=== PATIENT | female | born 1955 | race Caucasian/White ===

== ENCOUNTER 2017-08-05 14:01 | Emergency (ER) | payer MEDICARE, OTHER ==
[~2017-08-05] VITALS: Ht 167.6 cm; Wt 59.0 kg
[~2017-08-05 14:01] MED LIST: ALBU.083IS IH; ALBU90OI INH; ALPR1; AZIT250 PO; AZIT500 PO; BENZ100A PO; BUPR150ER; BUPR150ER PO; BUSPAR; CLON.5 PO; DOXY100 PO; DULO60 PO; ESCI20 PO; FLUSAL2505 INH; FLUSAL5005 IH; Flovent 110 MCG12 GM; HYDPAM25 PO; Hair, Skin & N1 EACH PO; INCRUSE ELLI62.5 MCG; LAMO50 PO; LATUDA60 MG; LISI5 PO; LITH300C PO; Lamictal100 MG PO; Lithium Carbon450 MG PO; Lithium Carbonate PO; METO50 PO; OXYACE5T PO; PRED10 PO; PRED20 PO; PROP10 PO; QUET100 PO; QUET300 PO; RXOXYACE PO; SERT50 PO; Seroquel200 MG PO; TEMA30 PO; TEMA7.5 PO; TIOT18 INH; TRAM50 PO; TRAZ50 PO; Ventolin5 MG/1 ML INH
[2017-08-05] MEDS ORDERED: Advair Hfa 230-12 GM (14:11)
[2017-08-05] MEDS ORDERED: ALBU90OI INH (14:12)
[2017-08-05] MEDS ORDERED: Norco 5-325 Ta1 EACH PO (14:41)
== END 2017-08-05 15:05 | disposition home or self-care (01) ==
LOC: ER 14:01
DX: S42.302A Unspecified fracture of shaft of humerus, left arm, initial encounter for closed fracture (principal); F31.9 Bipolar disorder, unspecified; J44.9 Chronic obstructive pulmonary disease, unspecified; Z87.891 Personal history of nicotine dependence; W18.09XA Striking against other object with subsequent fall, initial encounter
CPT/HCPCS: 29105; 36415; 73030; 96374; 99284; J3010

== ENCOUNTER 2017-08-12 11:02 | Day surgery (SDC) | payer MEDICARE, OTHER ==
[~2017-08-12] VITALS: Ht 167.6 cm; Wt 62.1 kg
[~2017-08-12 11:02] MED LIST changes: +Advair Hfa 230-12 GM; +Advair Hfa 230-12 GM INH; -BUPR150ER; -INCRUSE ELLI62.5 MCG; +INCRUSE ELLI62.5 MCG INH; -LATUDA60 MG; +LATUDA60 MG PO; +Norco 5-325 Ta1 EACH PO
[2017-08-13 04:35] LABS: BASOPHILS ABSOLUTE AUTO 0.01 K/mm3 (0.00-0.23); BASOPHILS PERCENT AUTO 0 % (0-2); EOSINOPHILS PERCENT AUTO 0 % (0-6); Hematocrit 29.8 % (33.0-51.0); Hemoglobin 9.4 g/dL (11.5-16.0); IMMATURE GRAN ABSOLUTE AUTO 0.03 K/mm3 (0.00-0.10); IMMATURE GRAN PERCENT AUTO 0 % (0-1); LYMPHOCYTES ABSOLUTE AUTO 0.97 K/mm3 (0.84-5.20); LYMPHOCYTES PERCENT AUTO 11 % (21-46); MONOCYTES ABSOLUTE AUTO 0.62 K/mm3 (0.16-1.47); MONOCYTES PERCENT AUTO 7 % (4-13); Mean Corpuscular HGB 28.7 pg (26.0-34.0); Mean Corpuscular HGB Conc 31.5 g/dL (31.5-36.5); Mean Corpuscular Volume 91 fL (80-100); Mean Platelet Volume 9.7 fL (9.1-12.4); NEUTROPHILS ABSOLUTE AUTO 7.36 K/mm3 (1.96-9.15); NEUTROPHILS PERCENT AUTO 82 % (41-73); Platelet Count 263 K/mm3 (150-400); RDW Standard Deviation 46.5 fL (35.1-46.3); Red Blood Cell Count 3.27 M/mm3 (3.80-5.20); White Blood Cell Count 8.99 K/mm3 (4.00-11.30)
[2017-08-13 05:12] LABS: Anion Gap 7 mmol/L (6-16); Blood Urea Nitrogen 18 mg/dL (8-24); Bun/Creatinine Ratio 23.4 (12.0-20.0); CO2, Blood 23 mmol/L (21-32); Chloride, Blood 111 mmol/L (98-108); Creatinine, Blood 0.77 mg/dL (0.40-1.00); Glomerular Filtration Rate >60 (60-); Glucose, Blood 89 mg/dL (70-99); Potassium, Blood 4.4 mmol/L (3.5-5.5); Sodium, Blood 141 mmol/L (136-145)
[2017-08-13] MEDS ORDERED: OXYC5 PO (15:16)
== END 2017-08-13 15:35 | disposition home or self-care (01) ==
LOC: ORSCMMR 11:02 → SURS 16:42 → ORSCMMR 08-13 15:35
PROVIDERS: Orthopaedic Surgery
PROC: 0PSG04Z Reposition Left Humeral Shaft with Internal Fixation Device, Open Approach (ICD-10-PCS; principal; 2017-08-12 12:30)
DX: S42.201A Unspecified fracture of upper end of right humerus, initial encounter for closed fracture (principal); J44.9 Chronic obstructive pulmonary disease, unspecified; Z79.899 Other long term (current) drug therapy; F17.210 Nicotine dependence, cigarettes, uncomplicated
CPT/HCPCS: 36415; 80048; 85025; 94640; 94760; C1713; J0171; J0690; J0735; J1100; J1885; J2250; J2405; J2710; J2795; J3010; J7120

== ENCOUNTER 2020-01-18 10:10 | Emergency (ER) | payer MEDICARE, OTHER ==
[~2020-01-18] VITALS: Ht 167.6 cm; Wt 68.0 kg
[~2020-01-18 10:10] MED LIST changes: +ALBU90OI6 INH; +Budeprion Sr150 MG PO; +LAMO100 PO; +OXYC5 PO; +Zoloft50 MG PO
== END 2020-01-18 11:58 | disposition home or self-care (01) ==
LOC: ER 10:10
DX: S01.01XA Laceration without foreign body of scalp, initial encounter (principal); F31.9 Bipolar disorder, unspecified; J44.9 Chronic obstructive pulmonary disease, unspecified; F17.210 Nicotine dependence, cigarettes, uncomplicated; Z91.041 Radiographic dye allergy status; Z79.899 Other long term (current) drug therapy; Z86.73 Personal history of transient ischemic attack (TIA), and cerebral infarction without residual deficits; W01.190A Fall on same level from slipping, tripping and stumbling with subsequent striking against furniture, initial encounter; Y93.E9 Activity, other interior property and clothing maintenance
CPT/HCPCS: 12002; 70450; 72125; 99283-25

== ENCOUNTER 2020-01-24 12:45 | Emergency (ER) | payer MEDICARE, OTHER ==
[~2020-01-24] VITALS: Ht 167.6 cm; Wt 69.0 kg
== END 2020-01-24 13:30 | disposition home or self-care (01) ==
LOC: ER 12:45
DX: S01.01XD Laceration without foreign body of scalp, subsequent encounter (principal); F31.9 Bipolar disorder, unspecified; J44.9 Chronic obstructive pulmonary disease, unspecified; F17.210 Nicotine dependence, cigarettes, uncomplicated; Z91.041 Radiographic dye allergy status; Z79.899 Other long term (current) drug therapy; X58.XXXD Exposure to other specified factors, subsequent encounter

== ENCOUNTER → 2020-02-14 | Outpatient (CLI) | payer MEDICARE, OTHER ==
[2020-02-14 12:19] LABS: Source, Urine Clean Catch
[2020-02-14 16:28] LABS: Bilirubin, Urine Neg (Neg); Blood, Urine Neg (Neg); Glucose Qualitative, Urine Neg (Neg); Ketones, Urine Neg (Neg); Leukocyte Esterase, Urine 1+ (Neg); Nitrite, Urine Neg (Neg); Protein, Urine Neg (Neg); Specific Gravity, Urine 1.015 (1.003-1.022); Urobilinogen, Urine NORM (Normal)
[2020-02-14 16:47] LABS: Appearance, Urine Clear (Clear); Color, Urine Yellow (P-Yellow)
[2020-02-14 16:48] LABS: Bacteria Few /hpf; Red Blood Cells, Urine 0-2 /hpf (0-2); Squamous Epithelial Cells Few /hpf (Few)
== END | disposition home or self-care (01) ==
LOC: LAB 11:15 → LAB SHORT 11:15
PROVIDERS: Nurse Practitioner Family
DX: N30.00 Acute cystitis without hematuria (principal)
CPT/HCPCS: 81001; 87086

== ENCOUNTER 2020-06-17 20:42 | Inpatient (IN) | payer MEDICARE, OTHER ==
[~2020-06-17] VITALS: Ht 170.2 cm; Wt 68.4 kg
[~2020-06-17 20:42] MED LIST changes: -ALBU90OI6 INH; -Budeprion Sr150 MG PO; -Zoloft50 MG PO
[2020-06-17 21:27] LABS: BASOPHILS ABSOLUTE AUTO 0.04 K/mm3 (0.00-0.23); BASOPHILS PERCENT AUTO 1 % (0-2); EOSINOPHILS ABSOLUTE AUTO 0.21 K/mm3 (0.00-0.68); EOSINOPHILS PERCENT AUTO 3 % (0-6); Hematocrit 34.1 % (33.0-51.0); Hemoglobin 11.2 g/dL (11.5-16.0); IMMATURE GRAN ABSOLUTE AUTO 0.02 K/mm3 (0.00-0.10); IMMATURE GRAN PERCENT AUTO 0 % (0-1); LYMPHOCYTES ABSOLUTE AUTO 1.93 K/mm3 (0.84-5.20); LYMPHOCYTES PERCENT AUTO 23 % (21-46); MONOCYTES ABSOLUTE AUTO 0.62 K/mm3 (0.16-1.47); MONOCYTES PERCENT AUTO 8 % (4-13); Mean Corpuscular HGB 27.9 pg (26.0-34.0); Mean Corpuscular HGB Conc 32.8 g/dL (31.5-36.5); Mean Corpuscular Volume 85 fL (80-100); Mean Platelet Volume 8.9 fL (9.1-12.4); NEUTROPHILS ABSOLUTE AUTO 5.42 K/mm3 (1.96-9.15); NEUTROPHILS PERCENT AUTO 66 % (41-73); Platelet Count 429 K/mm3 (150-400); RDW Coefficient Variation 13.3 % (11.7-14.2); RDW Standard Deviation 41.3 fL (35.1-46.3); Red Blood Cell Count 4.02 M/mm3 (3.80-5.20); White Blood Cell Count 8.24 K/mm3 (4.00-11.30)
[2020-06-17 21:47] LABS: Troponin I <0.015 ng/mL (0.000-0.040)
[2020-06-17 21:48] LABS: Alanine Aminotransfer (ALT/SGP 30 U/L (12-78); Albumin, Blood 3.1 g/dL (3.4-5.0); Albumin/Globulin Ratio 0.8 (0.8-1.8); Alk Phos 84 U/L (50-136); Anion Gap 9 mmol/L (6-16); Aspartate Aminotrans (AST/SGOT 27 U/L (12-37); Bilirubin, Total 0.3 mg/dL (0.1-1.0); Blood Urea Nitrogen 7 mg/dL (8-24); CO2, Blood 22 mmol/L (21-32); Calcium, Blood 9.4 mg/dL (8.5-10.1); Chloride, Blood 110 mmol/L (98-108); Creatinine, Blood 0.77 mg/dL (0.40-1.00); Globulin, Blood 4.1 g/dL (2.2-4.0); Glomerular Filtration Rate >60 (60-); Glucose, Blood 101 mg/dL (70-99); Potassium, Blood 3.4 mmol/L (3.5-5.5); Sodium, Blood 141 mmol/L (136-145); Total Protein, Blood 7.2 g/dL (6.4-8.2)
[2020-06-17] MEDS ORDERED: FLUTICASONE-SA1 EAC9 INH (22:05)
[2020-06-17] MEDS ORDERED: INCRUSE ELPT 62.5MCG INH (22:06)
[2020-06-17] MEDS ORDERED: Budeprion Sr150 MG PO (22:07)
[2020-06-17] MEDS ORDERED: Lithium Carbon450 MG PO (22:07)
[2020-06-17] MEDS ORDERED: QUET100 PO (22:08)
[2020-06-17] MEDS ORDERED: Zoloft50 MG PO (22:08)
[2020-06-17] MEDS ORDERED: LATUDA60 M1 PO (22:09)
[2020-06-17] MEDS ORDERED: ALBU90OI6 INH (22:10)
[2020-06-17] MEDS ORDERED: Aspir 8181 MG PO (22:11)
[2020-06-18 02:22] LABS: Influenza A, PCR NEGATIVE (NEGATIVE); Influenza B, PCR NEGATIVE (NEGATIVE); Resp Syncytial Virus, PCR NEGATIVE (NEGATIVE); SARS-Cov-2 (COVID-19) PCR, MMC NEGATIVE (NEGATIVE)
[2020-06-18] MEDS ORDERED: Inderal40 MG PO (17:58)
[2020-06-19 05:07] LABS: Base Excess Venous -2.9 mmol/L; Bicarbonate Venous 22.1 mmol/L (24.0-30.0); PCO2 Venous 38.2 mmHg (38-42); PO2 Venous 62.7 mmHg (38-42); pH Blood Venous 7.38 (7.34-7.37)
[2020-06-19 05:12] LABS: BASOPHILS ABSOLUTE AUTO 0.03 K/mm3 (0.00-0.23); BASOPHILS PERCENT AUTO 0 % (0-2); EOSINOPHILS ABSOLUTE AUTO 0.03 K/mm3 (0.00-0.68); EOSINOPHILS PERCENT AUTO 0 % (0-6); Hematocrit 33.5 % (33.0-51.0); Hemoglobin 10.6 g/dL (11.5-16.0); IMMATURE GRAN ABSOLUTE AUTO 0.04 K/mm3 (0.00-0.10); IMMATURE GRAN PERCENT AUTO 0 % (0-1); LYMPHOCYTES ABSOLUTE AUTO 1.42 K/mm3 (0.84-5.20); LYMPHOCYTES PERCENT AUTO 15 % (21-46); MONOCYTES ABSOLUTE AUTO 0.54 K/mm3 (0.16-1.47); MONOCYTES PERCENT AUTO 6 % (4-13); Mean Corpuscular HGB 27.5 pg (26.0-34.0); Mean Corpuscular HGB Conc 31.6 g/dL (31.5-36.5); Mean Corpuscular Volume 87 fL (80-100); NEUTROPHILS ABSOLUTE AUTO 7.39 K/mm3 (1.96-9.15); NEUTROPHILS PERCENT AUTO 78 % (41-73); Platelet Count 342 K/mm3 (150-400); RDW Standard Deviation 43.6 fL (35.1-46.3); Red Blood Cell Count 3.86 M/mm3 (3.80-5.20); White Blood Cell Count 9.45 K/mm3 (4.00-11.30)
[2020-06-19 05:30] LABS: Anion Gap 5 mmol/L (6-16); Blood Urea Nitrogen 13 mg/dL (8-24); Bun/Creatinine Ratio 14.8 (12.0-20.0); CO2, Blood 22 mmol/L (21-32); Calcium, Blood 9.1 mg/dL (8.5-10.1); Chloride, Blood 115 mmol/L (98-108); Creatinine, Blood 0.88 mg/dL (0.40-1.00); Glomerular Filtration Rate >60 (60-); Glucose, Blood 99 mg/dL (70-99); Potassium, Blood 4.5 mmol/L (3.5-5.5); Sodium, Blood 142 mmol/L (136-145)
[2020-06-19] MEDS ORDERED: GUAI200 PO (12:16)
[2020-06-19] MEDS ORDERED: Prednisone20 MG PO (12:17)
== END 2020-06-19 14:20 | disposition home or self-care (01) | DRG 191 ==
LOC: ER 20:42 → ERHOLD 20:43 → MEDS 06-18 12:36
PROVIDERS: Emergency Medicine; Internal Medicine; Physician Assistant; ADMIT Internal Medicine
DX: J44.0 Chronic obstructive pulmonary disease with (acute) lower respiratory infection (principal); E87.2 Acidosis; E44.0 Moderate protein-calorie malnutrition; J20.9 Acute bronchitis, unspecified; F31.9 Bipolar disorder, unspecified; K59.09 Other constipation; Z20.822 Contact with and (suspected) exposure to COVID-19; Z87.891 Personal history of nicotine dependence; E86.0 Dehydration; Z68.23 Body mass index [BMI] 23.0-23.9, adult
CPT/HCPCS: 0241U; 36415; 71045; 80048; 80053; 82803; 83605; 84145; 84484; 85025; 87040; 93005; 93010; 94640; 94667; 94762; 96365; 96366; 96372; 96372-59; 96375; 96376; 99285-25; A9270; G0378; J1650; J2930; J3480; J7512

== ENCOUNTER 2021-10-23 22:17 | Emergency (ER) | payer MEDICARE, OTHER ==
[~2021-10-23] VITALS: Ht 167.6 cm; Wt 68.0 kg
[~2021-10-23 22:17] MED LIST changes: +ALBU90OI6 INH; +Aspir 8181 MG PO; +Budeprion Sr150 MG PO; +FLUTICASONE-SA1 EAC9 INH; +GUAI200 PO; +INCRUSE ELPT 62.5MCG INH; +Inderal40 MG PO; +LATUDA60 M1 PO; +Prednisone20 MG PO; +Zoloft50 MG PO
[2021-10-23 22:53] LABS: BASOPHILS ABSOLUTE AUTO 0.11 K/mm3 (0.00-0.23); BASOPHILS PERCENT AUTO 1 % (0-2); EOSINOPHILS ABSOLUTE AUTO 0.41 K/mm3 (0.00-0.68); EOSINOPHILS PERCENT AUTO 3 % (0-6); Hematocrit 43.4 % (33.0-51.0); Hemoglobin 14.2 g/dL (11.5-16.0); IMMATURE GRAN ABSOLUTE AUTO 0.04 K/mm3 (0.00-0.10); IMMATURE GRAN PERCENT AUTO 0 % (0-1); LYMPHOCYTES PERCENT AUTO 25 % (21-46); MONOCYTES ABSOLUTE AUTO 0.73 K/mm3 (0.16-1.47); MONOCYTES PERCENT AUTO 6 % (4-13); Mean Corpuscular HGB 27.5 pg (26.0-34.0); Mean Corpuscular HGB Conc 32.7 g/dL (31.5-36.5); Mean Corpuscular Volume 84 fL (80-100); Mean Platelet Volume 9.2 fL (9.1-12.4); NEUTROPHILS ABSOLUTE AUTO 7.68 K/mm3 (1.96-9.15); NEUTROPHILS PERCENT AUTO 64 % (41-73); Platelet Count 367 K/mm3 (150-400); RDW Coefficient Variation 13.6 % (11.7-14.2); RDW Standard Deviation 42.1 fL (35.1-46.3); Red Blood Cell Count 5.17 M/mm3 (3.80-5.20); White Blood Cell Count 11.97 K/mm3 (4.00-11.30)
[2021-10-23 23:11] LABS: Albumin, Blood 4.5 g/dL (3.4-5.0); Bilirubin, Total 0.3 mg/dL (0.1-1.0); Bun/Creatinine Ratio 30.1 (12.0-20.0); Calcium, Blood 10.8 mg/dL (8.5-10.1); Creatinine, Blood 0.8 mg/dL (0.40-1.00); Globulin, Blood 4.5 g/dL (2.2-4.0); Potassium, Blood 4.4 mmol/L (3.5-5.5)
== END 2021-10-24 03:17 | disposition home or self-care (01) ==
LOC: ER 22:17
PROVIDERS: Physician Assistant
DX: S01.01XA Laceration without foreign body of scalp, initial encounter (principal); J44.9 Chronic obstructive pulmonary disease, unspecified; Z87.891 Personal history of nicotine dependence; Z79.899 Other long term (current) drug therapy; Z91.041 Radiographic dye allergy status; Z79.82 Long term (current) use of aspirin; Z79.52 Long term (current) use of systemic steroids; W22.8XXA Striking against or struck by other objects, initial encounter
CPT/HCPCS: 36415; 70450; 72125; 80053; 85025; A9270; G0480; J2405; J7120

== ENCOUNTER 2023-12-16 11:31 | Emergency (ER) | payer MEDICARE ==
[~2023-12-16] VITALS: Ht 167.6 cm; Wt 68.0 kg
[2023-12-16 12:03] LABS: BASOPHILS PERCENT AUTO 2 % (0-2); EOSINOPHILS ABSOLUTE AUTO 0.55 K/mm3 (0.00-0.68); EOSINOPHILS PERCENT AUTO 10 % (0-6); Hematocrit 39.8 % (33.0-51.0); Hemoglobin 12.6 g/dL (11.5-16.0); IMMATURE GRAN ABSOLUTE AUTO 0.01 K/mm3 (0.00-0.10); IMMATURE GRAN PERCENT AUTO 0 % (0-1); LYMPHOCYTES ABSOLUTE AUTO 1.33 K/mm3 (0.84-5.20); LYMPHOCYTES PERCENT AUTO 24 % (21-46); MONOCYTES ABSOLUTE AUTO 0.42 K/mm3 (0.16-1.47); MONOCYTES PERCENT AUTO 7 % (4-13); Mean Corpuscular HGB 26.4 pg (26.0-34.0); Mean Corpuscular HGB Conc 31.7 g/dL (31.5-36.5); Mean Corpuscular Volume 83 fL (80-100); Mean Platelet Volume 9.4 fL (9.1-12.4); NEUTROPHILS ABSOLUTE AUTO 3.25 K/mm3 (1.96-9.15); NEUTROPHILS PERCENT AUTO 57 % (41-73); Platelet Count 216 K/mm3 (150-400); RDW Coefficient Variation 14.4 % (11.7-14.2); RDW Standard Deviation 44.3 fL (35.1-46.3); Red Blood Cell Count 4.77 M/mm3 (3.80-5.20); White Blood Cell Count 5.66 K/mm3 (4.00-11.30)
[2023-12-16 12:26] LABS: Influenza A, PCR NEGATIVE (NEGATIVE); Influenza B, PCR NEGATIVE (NEGATIVE); Resp Syncytial Virus, PCR NEGATIVE (NEGATIVE); SARS-Cov-2 (COVID-19) PCR, MMC NEGATIVE (NEGATIVE)
[2023-12-16 12:46] LABS: Albumin, Blood 3.8 g/dL (3.4-5.0); Albumin/Globulin Ratio 0.9 (0.8-1.8); Bilirubin, Total 0.4 mg/dL (0.1-1.0); Bun/Creatinine Ratio 21.2 (12.0-20.0); Calcium, Blood 9.8 mg/dL (8.5-10.1); Creatinine, Blood 0.8 mg/dL (0.40-1.00); Globulin, Blood 4.1 g/dL (2.2-4.0); Potassium, Blood 4.5 mmol/L (3.5-5.5); Total Protein, Blood 7.9 g/dL (6.4-8.2)
[2023-12-16] MEDS ORDERED: Ipratropium/Albuterol SulF 2.5-0.5MG/3 ML Amp INH ONE (15:00)
[2023-12-16] MEDS ORDERED: MethylPREDNISolone Sod Succ 125 MG Vial IV ONE (15:05)
[2023-12-16 15:32] VITALS: BP 138/77
[2023-12-16] MEDS ORDERED: Prednisone20 MG PO (15:50)
== END 2023-12-16 16:01 | disposition home or self-care (01) ==
LOC: ER 11:31
PROVIDERS: Physician Assistant
DX: J44.1 Chronic obstructive pulmonary disease with (acute) exacerbation (principal); Z87.891 Personal history of nicotine dependence; Z86.73 Personal history of transient ischemic attack (TIA), and cerebral infarction without residual deficits; Z79.51 Long term (current) use of inhaled steroids; Z79.52 Long term (current) use of systemic steroids; Z79.899 Other long term (current) drug therapy; Z91.041 Radiographic dye allergy status
CPT/HCPCS: 0241U; 71046; 80053; 83880; 85025; 93005; 93010; 94640; 94664; 96374; 99285-25; J2919

== ENCOUNTER 2024-02-23 09:14 | Day surgery (SDC) | payer MEDICARE ==
[~2024-02-23] VITALS: Ht 167.6 cm; Wt 68.6 kg
[2024-02-23] VITALS (23 sets, daily range): BP systolic 120–170; BP diastolic 62–114
[~2024-02-23 09:14] MED LIST changes: +FAMO20 PO; +NS 500 ML IV SCH; +SERT100 PO; +WIXELA 250-501 EAC1 INH
[2024-02-23] MEDS ORDERED: TRELEGY ELLIPT1 EACH INH (09:31)
[2024-02-23] MEDS ORDERED: propofoL 40 ML IV ONE (09:53)
--- NOTE | 2024-02-23 09:56 | NUR ---
History, Chart, Medications and Allergies reviewed before start of procedure. Lungs clear T/O to Auscultation. Patient confirms NPO status and agrees with scheduled surgery. Patient states colon prep results clear. Pre-Op teaching done. Pt verbalizes understanding.
--- NOTE | 2024-02-23 10:00 | NUR ---
02/23/24 Reina Nieves CONFIRMED AND REVIEWED H&P, MEDCICATIONS, ALLERGIES, MEDICAL HISTORY, RESPIRATORY HISTORY, VITAL SIGNS, 3-LEAD EKG, CONSENTS, AND PHYSICIAN ORDERS. PATIENT CONFIRMS NPO STATUS AND AGREES WITH SCHEDULED PROCEDURE. MONITOR INTACT WITH CONTINUOUS PULSE OXIMETRY, CAPNOGRAPHY, 3-LEAD EKG, INTERMITTENT BP. SUPPLEMENTAL O2 TO BE TITRATED THROUGHOUT PROCEDURE TO MAINTAIN O2 SATURATION ABOVE 90%. PATIENT DETERMINED TO BE ASA APPROPRIATE FOR PROPOFOL SEDATION PRIOR TO START OF PROCEDURE BY DR. PIPER
--- NOTE | 2024-02-23 11:08 | NUR ---
Discharge instructions reviewed with patient. Patient verbalizes understanding. Copy given to patient to take home. Patient States Post-Procedure ride home has been arranged. Discharged via wheelchair to private car for ride home. Pt belongings returned to pt.
== END 2024-02-23 11:13 | disposition home or self-care (01) ==
LOC: ORSCMMR 09:14 → ORD 10:30 → ORSCMMR 11:13
PROVIDERS: Internal Medicine Gastroenterology
PROC: 0DBL8ZX Excision of Transverse Colon, Via Natural or Artificial Opening Endoscopic, Diagnostic (ICD-10-PCS; principal; 2024-02-23 10:30)
PROC: 0DBK8ZX Excision of Ascending Colon, Via Natural or Artificial Opening Endoscopic, Diagnostic (ICD-10-PCS; principal; 2024-02-23 10:30)
DX: Z12.11 Encounter for screening for malignant neoplasm of colon (principal); Z86.0101 Personal history of adenomatous and serrated colon polyps; D12.3 Benign neoplasm of transverse colon; K63.5 Polyp of colon; D12.2 Benign neoplasm of ascending colon; K57.30 Diverticulosis of large intestine without perforation or abscess without bleeding; M62.89 Other specified disorders of muscle; K59.09 Other constipation; J44.9 Chronic obstructive pulmonary disease, unspecified; F31.9 Bipolar disorder, unspecified; Z87.891 Personal history of nicotine dependence; Z79.82 Long term (current) use of aspirin; Z79.899 Other long term (current) drug therapy
CPT/HCPCS: 88305; J2704; J7040

== ENCOUNTER 2024-05-11 03:12 | Inpatient (IN) | payer MEDICARE ==
[~2024-05-11] VITALS: Ht 167.6 cm; Wt 68.9 kg
[~2024-05-11 03:12] MED LIST changes: -Budeprion Sr150 MG PO; +LITH300ER PO; -NS 500 ML IV SCH; +TRELEGY ELLIPT1 EACH INH
[2024-05-11 03:18] LABS: Base Excess Venous -3.4 mmol/L; Bicarbonate Venous 20.7 mmol/L (24.0-30.0); PCO2 Venous 48.3 mmHg (38-42); pH Blood Venous 7.29 (7.34-7.37)
[2024-05-11] MEDS ORDERED: Albuterol 2.5 MG/3 ML VIAL INH SCH (03:25)
[2024-05-11] MEDS ORDERED: Ipratropium Bromide INH 0.02% 0.5 mg/2.5ML Vial INH SCH ×2 (03:25→09:20)
[2024-05-11] MEDS ORDERED: MethylPREDNISolone Sod Succ 125 MG Vial IV ONE (04:15)
[2024-05-11 04:17] LABS: Magnesium, Blood 2.2 mg/dL (1.6-2.4); Phosphorus, Blood 3.2 mg/dL (2.5-4.9)
[2024-05-11] MEDS ORDERED: CefTRIAXone Sodium 1,000 MG in NS 50 ML IV ONE (04:20)
[2024-05-11] MEDS ORDERED: Azithromycin 500 MG in NS 250 ML IV ONE (04:25)
[2024-05-11] MEDS ORDERED: Ondansetron HCl 2 MG / ML 2ML Vial IV PRN (04:30)
[2024-05-11 05:09] LABS: CORONAVIRUS COVID-19 AG Negative (NEGATIVE); INFLUENZA A AG Negative (NEGATIVE); INFLUENZA B AG Negative (NEGATIVE)
[2024-05-11] MEDS ORDERED: FLU VACC TS2024-25(6MOS UP)/PF 45 MCG/0.5 ML SYRINGE IM ONE (05:35)
[2024-05-11] MEDS ORDERED: Ipratropium/Albuterol SulF 2.5-0.5MG/3 ML Amp INH PRN (05:35)
[2024-05-11 06:00] VITALS: BP 126/83
[2024-05-11] MEDS ORDERED: MethylPREDNISolone Sod Succ 125 MG Vial IV SCH ×2 (06:00→12:00)
--- NOTE | 2024-05-11 06:15 | NUR ---
NURSE NOTE PATIENT ARRIVED TO THE UNIT ON A GURNEY, SHE SAT AT THE SIDE DANGLED AND MOVED OVER TO PCU BED. PATIENT ARRIVED ON 4 LITERS NC SATTING AT 100%. PT WAS ABLE TO ANSWER QUESTIONS FOR HEALTH HISTORY AND ASSESMENT. PT SAID SHE HAD A RECENT FALL DOWN HER FRONT STEPS AT HER TRAILER, HER LEFT WRIST IS FRACTURED ACCORDING TO THE PT AND SHE IS TO HAVE SURGERY ON IT AT THE END OF THIS MONTH. PT WAS INSTRUCTED TO NOT USE THAT LEFT WRIST. DURING ASSESSMENT PT WAS NOTED TO HAVE A PERSISTENT COUGH, PT WAS TRIPPODING AND RR OF 22 WAS NOTED. IV ABX INFUSING PER EMAR. CALL LIGHT IN REACH, WILL REPORT TO ONCOMING RN.
[2024-05-11 07:02] LABS: BASOPHILS ABSOLUTE AUTO 0.05 K/mm3 (0.00-0.23); BASOPHILS PERCENT AUTO 1 % (0-2); EOSINOPHILS ABSOLUTE AUTO 0.13 K/mm3 (0.00-0.68); EOSINOPHILS PERCENT AUTO 2 % (0-6); Hematocrit 39.3 % (33.0-51.0); Hemoglobin 12.6 g/dL (11.5-16.0); IMMATURE GRAN ABSOLUTE AUTO 0.01 K/mm3 (0.00-0.10); IMMATURE GRAN PERCENT AUTO 0 % (0-1); LYMPHOCYTES ABSOLUTE AUTO 1.18 K/mm3 (0.84-5.20); LYMPHOCYTES PERCENT AUTO 20 % (21-46); MONOCYTES ABSOLUTE AUTO 0.76 K/mm3 (0.16-1.47); MONOCYTES PERCENT AUTO 13 % (4-13); Mean Corpuscular HGB 26.3 pg (26.0-34.0); Mean Corpuscular HGB Conc 32.1 g/dL (31.5-36.5); Mean Corpuscular Volume 82 fL (80-100); Mean Platelet Volume 10.3 fL (9.1-12.4); NEUTROPHILS ABSOLUTE AUTO 3.75 K/mm3 (1.96-9.15); NEUTROPHILS PERCENT AUTO 64 % (41-73); Platelet Count 246 K/mm3 (150-400); RDW Coefficient Variation 14.7 % (11.7-14.2); Red Blood Cell Count 4.79 M/mm3 (3.80-5.20); White Blood Cell Count 5.88 K/mm3 (4.00-11.30)
[2024-05-11 07:09] LABS: Albumin, Blood 3.8 g/dL (3.4-5.0); Albumin/Globulin Ratio 0.9 (0.8-1.8); Bilirubin, Total 0.5 mg/dL (0.1-1.0); Bun/Creatinine Ratio 21.8 (12.0-20.0); Calcium, Blood 9.8 mg/dL (8.5-10.1); Creatinine, Blood 0.74 mg/dL (0.40-1.00); Globulin, Blood 4.4 g/dL (2.2-4.0); Potassium, Blood 4.4 mmol/L (3.5-5.5); Total Protein, Blood 8.2 g/dL (6.4-8.2)
[2024-05-11 07:14] VITALS: BP 120/64
[2024-05-11] MEDS ORDERED: Enoxaparin 40 MG/0.4 ML SYR SC SCH (09:00)
[2024-05-11] MEDS ORDERED: Mometasone/Formoterol MDI 100/5 mcg 13 GM INH SCH (09:20)
[2024-05-11] MEDS ORDERED: Sertraline HCl 100 MG Tab PO SCH (10:00)
[2024-05-11] MEDS ORDERED: buPROPion HCL 150 MG TAB.SR.12H PO SCH (10:00)
[2024-05-11] MEDS ORDERED: Lithium Carbonate 450 MG TabCR PO SCH (10:00)
[2024-05-11 17:09] VITALS: BP 105/82
--- NOTE | 2024-05-11 17:43 | NUR ---
SHIFT SUMMARY: PT ALERT AND ORIENTED X4, ABLE TO FOLLOW COMMANDS AND MAKE NEEDS KNOWN. COOPERATIVE WITH CARE. BP AND HR STABLE. DENIES CP/PRESSURE. AFEBRILE. SPO2 >94% ON ROOM AIR. LUNG SOUNDS COARSE. PT WITH HARSH, NON PRODUCTIVE COUGH. PULSES STRONG AND EQUAL THROUGHOUT. ABD SOFT, NON TENDER, BOWEL SOUNDS +. NO BM THIS SHIFT. PT WITH PARK BANDAGE WRAP ON L. WRIST. PT STATES FRACTURE PRIOR TO ADMISSION, EXPECTING SURGERY LATER THIS MONTH. PT IND TO AND FROM BATHROOM. BED IN LOW, CALL LIGHT IN REACH, WILL REPORT TO ONCOMING RN.
[2024-05-11] MEDS ORDERED: Misc. Tablet PO SCH (18:00)
[2024-05-11] MEDS ORDERED: OxyCODONE HCL 5 MG TAB PO PRN (18:15)
[2024-05-11 20:24] VITALS: BP 123/73
[2024-05-11] MEDS ORDERED: QUEtiapine Fumarate 100 MG Tab PO SCH (21:00)
[2024-05-11] MEDS ORDERED: GuaiFENesin 200 MG IR Tab PO SCH (21:00)
[2024-05-12 00:41] VITALS: BP 120/67
[2024-05-12] MEDS ORDERED: Benzocaine Oral Spray 0.5ML UD MT PRN (03:25)
[2024-05-12 04:05] VITALS: BP 128/90
[2024-05-12] MEDS ORDERED: Azithromycin 500 MG in NS 250 ML IV SCH (06:00)
--- NOTE | 2024-05-12 06:34 | NUR ---
SHIFT SUMMARY PT REMAINS A&OX4. VSS ON RA >92%. PT C/O 10/25 PAIN IN R WRIST FROM FX. PRN OXYCODONE GIVEN WITH GOOD EFFECT. PT GIVEN IV STEROIDS AND IV ABX PER JUN. PT REQUESTED THROAT LOZENGES, HURRICANE SPRAY ORDERED AND GIVEN WITH GOOD EFFECT. PT HAS NO FURTHER QUESTIONS OR CONCERNS AT THIS TIME. CALL GEE WITHIN REACH. WILL REPORT TO ONCOMING NURSE.
[2024-05-12 07:06] VITALS: BP 130/73
[2024-05-12 15:13] VITALS: BP 141/96
--- NOTE | 2024-05-12 16:58 | NUR ---
SHIFT SUMMARY: PT WITH NO ACUTE EVENTS THIS SHIFT. ALERT AND ORIENTED X4, ABLE TO FOLLOW COMMANDS AND MAKE NEEDS KNOWN. BP AND HR STABLE. AFEBRILE. SPO2 >94% ON ROOM AIR. LUMG SOUNDS REMAIN COARSE, PT WITH HARSH NON PRODUCTIVE COUGH. MEDICATED PER EMAR FOR L. WRIST PAIN. PT IND TO AND FROM BATHROOM. BED IN LOW, CALL LIGHT IN REACH, WILL REPORT TO ONCOMING RN.
[2024-05-12 20:35] VITALS: BP 124/69
[2024-05-12] MEDS ORDERED: QUEtiapine Fumarate 300 MG Tab PO ONE (21:00)
[2024-05-12] MEDS ORDERED: MethylPREDNISolone Sod Succ 125 MG Vial IV SCH (21:00)
[2024-05-13] MEDS ORDERED: QUEtiapine Fumarate 300 MG Tab PO PRN
[2024-05-13 00:55] VITALS: BP 139/89
[2024-05-13 04:26] VITALS: BP 125/60
--- NOTE | 2024-05-13 05:12 | NUR ---
SHIFT SUMMARY NO CHANGES AT THIS TIME. PT REMAINS A&OX4. VSS ON RA. NO C/O SOB. PT CONTINUES TO HAVE A NON-PRODUCTIVE COUGH, PRN HURRICANE SPRAY GIVEN FOR SORE THROAT. PT RESTING COMFORTABLY IN BED WITH NO FURTHER QUESTIONS OR CONCERNS AT THIS TIME. WILL REPORT TO ONCOMING NURSE.
[2024-05-13 05:25] LABS: BASOPHILS ABSOLUTE AUTO 0.01 K/mm3 (0.00-0.23); BASOPHILS PERCENT AUTO 0 % (0-2); EOSINOPHILS PERCENT AUTO 0 % (0-6); Hematocrit 36.3 % (33.0-51.0); Hemoglobin 11.6 g/dL (11.5-16.0); IMMATURE GRAN ABSOLUTE AUTO 0.03 K/mm3 (0.00-0.10); IMMATURE GRAN PERCENT AUTO 0 % (0-1); LYMPHOCYTES PERCENT AUTO 17 % (21-46); MONOCYTES ABSOLUTE AUTO 0.22 K/mm3 (0.16-1.47); MONOCYTES PERCENT AUTO 3 % (4-13); Mean Corpuscular Volume 81 fL (80-100); Mean Platelet Volume 10.4 fL (9.1-12.4); NEUTROPHILS ABSOLUTE AUTO 6.21 K/mm3 (1.96-9.15); NEUTROPHILS PERCENT AUTO 80 % (41-73); Platelet Count 277 K/mm3 (150-400); RDW Coefficient Variation 14.6 % (11.7-14.2); RDW Standard Deviation 43.2 fL (35.1-46.3); Red Blood Cell Count 4.46 M/mm3 (3.80-5.20); White Blood Cell Count 7.77 K/mm3 (4.00-11.30)
[2024-05-13 06:20] LABS: Bun/Creatinine Ratio 28.4 (12.0-20.0); Calcium, Blood 9.7 mg/dL (8.5-10.1); Creatinine, Blood 0.88 mg/dL (0.40-1.00); Potassium, Blood 4.1 mmol/L (3.5-5.5)
[2024-05-13 07:35] VITALS: BP 125/90
[2024-05-13] MEDS ORDERED: OXYC5 PO (10:16)
[2024-05-13] MEDS ORDERED: AZIT250 PO (10:17)
[2024-05-13] MEDS ORDERED: METO25ER PO (10:18)
--- NOTE | 2024-05-13 10:32 | NUR ---
DISCHARGE: PT DISCHARGE PCU 19 @1035 VIA WHEELCHAIR. DISCHARGE INSTRUCTONS AND EDUCATION PROVIDED. PRESCRIPTIONS FAXED TO [facility]
[2024-05-14] MEDS ORDERED: PROPRANOLOL HCL60 MG PO (15:02)
== END 2024-05-13 10:34 | disposition home or self-care (01) | DRG 189 ==
LOC: ER 03:12 → PCU 04:23 → ERHOLD 04:23 → PCU 05:16
PROVIDERS: Emergency Medicine; Internal Medicine; ADMIT Internal Medicine
DX: J96.01 Acute respiratory failure with hypoxia (principal); J44.1 Chronic obstructive pulmonary disease with (acute) exacerbation; J96.02 Acute respiratory failure with hypercapnia; F31.9 Bipolar disorder, unspecified; B19.20 Unspecified viral hepatitis C without hepatic coma; Z96.642 Presence of left artificial hip joint; Z87.891 Personal history of nicotine dependence; Z79.51 Long term (current) use of inhaled steroids; Z79.899 Other long term (current) drug therapy; Z79.82 Long term (current) use of aspirin; Z86.73 Personal history of transient ischemic attack (TIA), and cerebral infarction without residual deficits; Z98.890 Other specified postprocedural states; Z90.49 Acquired absence of other specified parts of digestive tract; Z90.710 Acquired absence of both cervix and uterus; Z90.721 Acquired absence of ovaries, unilateral; Z98.1 Arthrodesis status; Z87.19 Personal history of other diseases of the digestive system; Z91.041 Radiographic dye allergy status
CPT/HCPCS: 36415; 71046; 80048; 80053; 82803; 83605; 83735; 83880; 84100; 84484; 85025; 87040; 87428-QW; 93005; 93010; 94640; 94644; 94664; 94760; 94762; 99285-25; A9270; J0456; J0696; J1650; J2919; J7050

== ENCOUNTER 2024-05-28 12:05 | Day surgery (SDC) | payer MEDICARE ==
[~2024-05-28] VITALS: Ht 165.1 cm; Wt 69.0 kg
[2024-05-28] VITALS (11 sets, daily range): BP systolic 129–159; BP diastolic 68–94
[~2024-05-28 12:05] MED LIST changes: -Inderal40 MG PO; +METO25ER PO; +PROPRANOLOL HCL60 MG PO
[2024-05-28] MEDS ORDERED: CeFAZolin Sodium 2,000 MG in NS 100 ML IV SCH (14:00)
[2024-05-28] MEDS ORDERED: Lactated Ringer's 1,000 ML IV SCH (14:00)
[2024-05-28] MEDS ORDERED: Bupivacaine 0.5% W/EPI 1:200000 SDV 30 ML Vial ONE (14:05)
[2024-05-28] MEDS ORDERED: propofoL 50 ML IV ONE (14:05)
[2024-05-28] MEDS ORDERED: FentaNYL Citrate 50 MCG/ML 2 ML Injection ONE (14:06)
[2024-05-28] MEDS ORDERED: CeFAZolin Sodium 2,000 MG VIAL ONE (14:16)
[2024-05-28] MEDS ORDERED: Ondansetron HCl 2 MG / ML 2ML Vial ONE (15:01)
[2024-05-28] MEDS ORDERED: Ketorolac Tromethamine 30mg Vial ONE (15:01)
[2024-05-28] MEDS ORDERED: Dexamethasone Sod Phos 10 MG/ML 1ML VIAL ONE (15:01)
[2024-05-28] MEDS ORDERED: HYDROcodone 5-APAP 325 TAB PO PRN (16:40)
--- NOTE | 2024-05-28 17:30 | NUR ---
Discharge instructions reviewed with patient. Patient verbalizes understanding. Copy given to patient to take home. Discharged via wheelchair to private car for ride home.
== END 2024-05-28 17:33 | disposition home or self-care (01) ==
LOC: ORSCMMR 12:05 → ORD 13:30 → ORSCMMR 17:33
PROVIDERS: Orthopaedic Surgery
PROC: 0PSQ34Z Reposition Left Metacarpal with Internal Fixation Device, Percutaneous Approach (ICD-10-PCS; principal; 2024-05-28 13:30)
DX: S62.232A Other displaced fracture of base of first metacarpal bone, left hand, initial encounter for closed fracture (principal); J44.9 Chronic obstructive pulmonary disease, unspecified; Z87.891 Personal history of nicotine dependence; Z79.899 Other long term (current) drug therapy; F32.A Depression, unspecified; Z01.812 Encounter for preprocedural laboratory examination; M79.642 Pain in left hand; B18.2 Chronic viral hepatitis C; B19.20 Unspecified viral hepatitis C without hepatic coma; Z20.5 Contact with and (suspected) exposure to viral hepatitis; A53.9 Syphilis, unspecified; Z01.818 Encounter for other preprocedural examination
CPT/HCPCS: 36415; 80053; 85027; 85610; 85730; 86592; 86704; 86708; 87340; 87389; 87522; 87902; A9270; C1889; J0690; J1100; J1885; J2405; J2704; J3010; J7120

== ENCOUNTER 2024-05-31 15:05 | Observation (INO) | payer MEDICARE ==
[~2024-05-31] VITALS: Ht 165.1 cm; Wt 70.3 kg
[2024-05-31] MEDS ORDERED: MethylPREDNISolone Sod Succ 125 MG Vial IV ONE (15:25)
[2024-05-31] MEDS ORDERED: Ipratropium/Albuterol SulF 2.5-0.5MG/3 ML Amp INH ONE (15:25)
[2024-05-31] MEDS ORDERED: Doxycycline Hyclate 100 MG in Dextrose 5% 250 ML IV ONE (15:30)
[2024-05-31 15:34] LABS: BASOPHILS ABSOLUTE AUTO 0.04 K/mm3 (0.00-0.23); BASOPHILS PERCENT AUTO 1 % (0-2); EOSINOPHILS ABSOLUTE AUTO 0.09 K/mm3 (0.00-0.68); EOSINOPHILS PERCENT AUTO 1 % (0-6); Hematocrit 37.5 % (33.0-51.0); Hemoglobin 12.1 g/dL (11.5-16.0); IMMATURE GRAN ABSOLUTE AUTO 0.03 K/mm3 (0.00-0.10); IMMATURE GRAN PERCENT AUTO 0 % (0-1); LYMPHOCYTES ABSOLUTE AUTO 1.77 K/mm3 (0.84-5.20); LYMPHOCYTES PERCENT AUTO 23 % (21-46); MONOCYTES PERCENT AUTO 7 % (4-13); Mean Corpuscular HGB 26.2 pg (26.0-34.0); Mean Corpuscular HGB Conc 32.3 g/dL (31.5-36.5); Mean Corpuscular Volume 81 fL (80-100); Mean Platelet Volume 9.8 fL (9.1-12.4); NEUTROPHILS ABSOLUTE AUTO 5.32 K/mm3 (1.96-9.15); NEUTROPHILS PERCENT AUTO 69 % (41-73); Platelet Count 253 K/mm3 (150-400); RDW Coefficient Variation 15.8 % (11.7-14.2); RDW Standard Deviation 45.4 fL (35.1-46.3); Red Blood Cell Count 4.61 M/mm3 (3.80-5.20); White Blood Cell Count 7.75 K/mm3 (4.00-11.30)
[2024-05-31 15:55] LABS: Bun/Creatinine Ratio 27.8 (12.0-20.0); Calcium, Blood 9.8 mg/dL (8.5-10.1); Creatinine, Blood 0.86 mg/dL (0.40-1.00)
[2024-05-31 16:45] LABS: Base Excess Venous -3.2 mmol/L; PCO2 Venous 29.1 mmHg (38-42); pH Blood Venous 7.46 (7.34-7.37)
[2024-05-31 17:11] LABS: Influenza A, PCR NEGATIVE (NEGATIVE); Influenza B, PCR NEGATIVE (NEGATIVE); Resp Syncytial Virus, PCR NEGATIVE (NEGATIVE); SARS-Cov-2 (COVID-19) PCR, MMC NEGATIVE (NEGATIVE)
[2024-05-31] MEDS ORDERED: Morphine Sulfate 4 MG/1 ML Injection IV ONE ×2 (17:25→20:50)
[2024-05-31] MEDS ORDERED: Ketorolac Tromethamine 15mg Vial IV ONE (17:25)
[2024-05-31] MEDS ORDERED: NS 1,000 ML IV SCH (22:05)
[2024-05-31] MEDS ORDERED: Albuterol 2.5 MG/3 ML VIAL INH PRN (22:05)
[2024-05-31] MEDS ORDERED: Tiotropium Bromide 2.5 MCG/ACT MIST INHAL (10 ACT/4 GM) INH SCH (22:05)
[2024-05-31] MEDS ORDERED: Ondansetron HCl 2 MG / ML 2ML Vial IV PRN (22:05)
[2024-05-31 22:20] LABS: Source, Urine Clean Catch
[2024-05-31 22:24] LABS: Appearance, Urine Clear (Clear); Bilirubin, Urine Neg (Neg); Blood, Urine Neg (Neg); Color, Urine Yellow (P-Yellow); Glucose Qualitative, Urine Neg (Neg); Ketones, Urine Neg (Neg); Leukocyte Esterase, Urine Neg (Neg); Nitrite, Urine Neg (Neg); Protein, Urine Neg (Neg); Specific Gravity, Urine 1.005 (1.003-1.022); Urobilinogen, Urine NORM (Normal)
[2024-05-31] MEDS ORDERED: Mometasone/Formoterol MDI 200/5 mcg 13 GM INH SCH (22:25)
[2024-05-31] MEDS ORDERED: Albuterol 2.5 MG/3 ML VIAL INH ONE (23:00)
[2024-05-31] MEDS ORDERED: LORazepam 2 MG/ML 1ML Injection IV ONE (23:00)
[2024-05-31 23:10] LABS: U Amphetamine Screen Not Detected; U Barbituate Screen Not Detected; U Benzodiazapine Screen Not Detected; U Buprenorphine Screen Not Detected; U Cannabinoids Screen DETECTED; U Cocaine Screen Not Detected; U Methadone Screen Not Detected; U Methamphetamine Screen Not Detected; U Opiates Screen DETECTED; U Oxycodone Screen Not Detected; U Phencyclidine Screen Not Detected
[2024-05-31 23:23] LABS: Anion Gap 14 mmol/L (3-11); Beta-hydroxybutyrate 1.7 mg/dL (0.2-2.8); Blood Urea Nitrogen 23 mg/dL (8-24); Bun/Creatinine Ratio 32.9 (12.0-20.0); C-REACTIVE PROTEIN, EXT RANGE <0.290 mg/dL (0.000-0.300); CO2, Blood 15 mmol/L (21-32); Calcium, Blood 9.6 mg/dL (8.5-10.1); Chloride, Blood 115 mmol/L (98-108); Glomerular Filtration Rate 94 (60-); Glucose, Blood 145 mg/dL (70-99); Potassium, Blood 4.1 mmol/L (3.5-5.5); Sodium, Blood 140 mmol/L (136-145); Thyroid Stimulating Hormone 0.782 uIU/mL (0.360-4.800)
[2024-05-31] MEDS ORDERED: ALBU90OI INH (23:27)
[2024-05-31] MEDS ORDERED: ALBU2.5V5 INH (23:28)
[2024-05-31] MEDS ORDERED: TRELEGY ELLIPT1 EACH INH (23:29)
[2024-05-31] MEDS ORDERED: GUAI600T33 PO (23:30)
[2024-05-31] MEDS ORDERED: LATUDA60 M2 PO (23:32)
[2024-05-31 23:36] VITALS: BP 149/87
[2024-05-31 23:40] LABS: Lithium <0.20 mmol/L (0.60-1.20)
[2024-05-31] MEDS ORDERED: NS 1,000 ML IV ONE (23:52)
[2024-06-01] VITALS (10 sets, daily range): BP systolic 124–166; BP diastolic 74–106
[2024-06-01] MEDS ORDERED: Calcium Carbonate 500 MG Tab Chew PO PRN (05:20)
[2024-06-01] MEDS ORDERED: Acetaminophen 325 MG TABLET PO PRN (05:50)
[2024-06-01 06:30] LABS: Base Excess Venous -6.5 mmol/L; Bicarbonate Venous 20.2 mmol/L (24.0-30.0); pH Blood Venous 7.48 (7.34-7.37)
[2024-06-01 06:34] LABS: Hematocrit 29.8 % (33.0-51.0); Hemoglobin 9.9 g/dL (11.5-16.0); Mean Corpuscular HGB 25.9 pg (26.0-34.0); Mean Corpuscular HGB Conc 33.2 g/dL (31.5-36.5); Mean Corpuscular Volume 78 fL (80-100); Mean Platelet Volume 9.6 fL (9.1-12.4); Platelet Count 275 K/mm3 (150-400); RDW Coefficient Variation 15.7 % (11.7-14.2); RDW Standard Deviation 43.1 fL (35.1-46.3); Red Blood Cell Count 3.82 M/mm3 (3.80-5.20); White Blood Cell Count 7.86 K/mm3 (4.00-11.30)
[2024-06-01 07:06] LABS: Bun/Creatinine Ratio 31.7 (12.0-20.0); Calcium, Blood 9.2 mg/dL (8.5-10.1); Creatinine, Blood 0.66 mg/dL (0.40-1.00); Potassium, Blood 4.1 mmol/L (3.5-5.5)
[2024-06-01] MEDS ORDERED: Metoprolol Succinate 25 MG TABCR PO SCH (09:00)
[2024-06-01] MEDS ORDERED: Heparin Sodium 5000 Units/ML 1ML MDV SC SCH (09:00)
[2024-06-01] MEDS ORDERED: Morphine Sulfate 4 MG/1 ML Injection IV PRN (12:10)
[2024-06-01] MEDS ORDERED: HYDROmorphone HCl/Pf 1MG SYR ONE (12:40)
[2024-06-01] MEDS ORDERED: LORazepam 2 MG/ML 1ML Injection ONE (12:40)
[2024-06-01] MEDS ORDERED: HYDROmorphone HCl/Pf 1MG SYR IV ONE (12:40)
[2024-06-01] MEDS ORDERED: LORazepam 2 MG/ML 1ML Injection IV ONE (12:40)
[2024-06-01] MEDS ORDERED: Aspirin 325 MG Tab PO ONE (12:45)
[2024-06-01] MEDS ORDERED: Mag Hydrox/Al Hydrox/Simeth 18 ML,Lidocaine 2% Viscous Soln 9 ML,Atropine/Scopalam/Hyos... PO ONE (12:55)
[2024-06-01] MEDS ORDERED: Inderal 20 mg T20 MG PO (14:26)
[2024-06-01] MEDS ORDERED: Pantoprazole Sodium 40 MG Injection IV ONE (22:50)
[2024-06-01 23:20] LABS: Albumin, Blood 3.1 g/dL (3.4-5.0); Albumin/Globulin Ratio 0.9 (0.8-1.8); Bilirubin, Direct 0.1 mg/dL (0.0-0.3); Bilirubin, Indirect 0.4 mg/dL (0.1-0.7); Bilirubin, Total 0.5 mg/dL (0.1-1.0); Bun/Creatinine Ratio 26.8 (12.0-20.0); Calcium, Blood 9.3 mg/dL (8.5-10.1); Creatinine, Blood 0.79 mg/dL (0.40-1.00); Globulin, Blood 3.6 g/dL (2.2-4.0); Potassium, Blood 4.2 mmol/L (3.5-5.5); Total Protein, Blood 6.7 g/dL (6.4-8.2)
[2024-06-02 00:30] VITALS: BP 130/61
[2024-06-02 03:48] VITALS: BP 132/87
[2024-06-02 06:17] LABS: BASOPHILS ABSOLUTE AUTO 0.04 K/mm3 (0.00-0.23); BASOPHILS PERCENT AUTO 1 % (0-2); EOSINOPHILS ABSOLUTE AUTO 0.21 K/mm3 (0.00-0.68); EOSINOPHILS PERCENT AUTO 3 % (0-6); Hemoglobin 11.1 g/dL (11.5-16.0); IMMATURE GRAN ABSOLUTE AUTO 0.02 K/mm3 (0.00-0.10); IMMATURE GRAN PERCENT AUTO 0 % (0-1); LYMPHOCYTES ABSOLUTE AUTO 2.06 K/mm3 (0.84-5.20); LYMPHOCYTES PERCENT AUTO 32 % (21-46); MONOCYTES ABSOLUTE AUTO 0.35 K/mm3 (0.16-1.47); MONOCYTES PERCENT AUTO 5 % (4-13); Mean Corpuscular HGB 26.4 pg (26.0-34.0); Mean Corpuscular HGB Conc 32.6 g/dL (31.5-36.5); Mean Corpuscular Volume 81 fL (80-100); Mean Platelet Volume 9.7 fL (9.1-12.4); NEUTROPHILS ABSOLUTE AUTO 3.75 K/mm3 (1.96-9.15); NEUTROPHILS PERCENT AUTO 58 % (41-73); Platelet Count 278 K/mm3 (150-400); RDW Coefficient Variation 16.1 % (11.7-14.2); RDW Standard Deviation 46.8 fL (35.1-46.3); Red Blood Cell Count 4.21 M/mm3 (3.80-5.20); White Blood Cell Count 6.43 K/mm3 (4.00-11.30)
[2024-06-02 06:41] LABS: Calcium, Blood 9.7 mg/dL (8.5-10.1); Creatinine, Blood 0.91 mg/dL (0.40-1.00); Potassium, Blood 4.7 mmol/L (3.5-5.5)
[2024-06-02] MEDS ORDERED: [UNRECOGNIZED DRUG - OTHER] INH SCH (07:10)
[2024-06-02] MEDS ORDERED: VILANTEROL INH SCH (07:10)
[2024-06-02] MEDS ORDERED: UMECLIDINIUM INH SCH (07:10)
[2024-06-02 07:26] VITALS: BP 129/82
[2024-06-02] MEDS ORDERED: Aminophylline 250MG / 10ML 10 ML Vial ONE (08:05)
[2024-06-02] MEDS ORDERED: Regadenoson 0.4 MG/5 ML SYRINGE ONE (08:05)
[2024-06-02] MEDS ORDERED: buPROPion HCL 150 MG TAB.SR.12H PO SCH (09:00)
[2024-06-02] MEDS ORDERED: Furosemide 10 MG / ML 2ML Vial IV SCH (09:00)
[2024-06-02] MEDS ORDERED: Lithium Carbonate 300 MG TabCR PO SCH (09:00)
[2024-06-02 11:41] VITALS: BP 122/73
[2024-06-02] MEDS ORDERED: Pantoprazole Sodium 20 MG Tab PO SCH (13:00)
[2024-06-02] MEDS ORDERED: PANT20 PO (15:25)
[2024-06-02] MEDS ORDERED: QUEtiapine Fumarate 300 MG Tab PO SCH (21:00)
[2024-06-02] MEDS ORDERED: Sertraline HCl 100 MG Tab PO SCH (21:00)
== END 2024-06-02 15:36 | disposition home or self-care (01) ==
LOC: ER 15:05 → ERHOLD 22:13 → MEDS 22:13
PROVIDERS: Emergency Medicine; Nurse Practitioner Acute Care; Student in an Organized Health Care Education/Training Program; ADMIT Student in an Organized Health Care Education/Training Program
DX: R07.89 Other chest pain (principal); J44.9 Chronic obstructive pulmonary disease, unspecified; F31.9 Bipolar disorder, unspecified; K21.9 Gastro-esophageal reflux disease without esophagitis; F41.9 Anxiety disorder, unspecified; Z87.891 Personal history of nicotine dependence; Z88.8 Allergy status to other drugs, medicaments and biological substances; Z79.899 Other long term (current) drug therapy; Z90.49 Acquired absence of other specified parts of digestive tract
CPT/HCPCS: 0241U; 36415; 71045; 76705; 78452; 80048; 80053; 80178; 81003; 82010; 82248; 82803; 83605; 83735; 83880; 84443; 84484; 85025; 85027; 85379; 85651; 86140; 93005; 93010; 93017; 93308; 93321; 94640; 94660; 94664; 94760; 96372; 96374; 96375; 96376; 99291-25; A9270; A9500; G0378; J0280; J1171; J1644; J1885; J1940; J2060; J2270; J2405; J2470; J2785; J2919; J7030; J7060

== ENCOUNTER → 2024-11-08 | Outpatient (CLI) | payer MEDICARE ==
[~2024-11-08] MED LIST changes: +ALBU2.5V5 INH; +GUAI600T33 PO; +Inderal 20 mg T20 MG PO; +LATUDA60 M2 PO; +PANT20 PO
[2024-11-08 20:30] LABS: Lithium 1.04 mmol/L (0.60-1.20)
== END ==
LOC: LAB SHORT 15:29 → LAB 15:29
PROVIDERS: Nurse Practitioner Psychiatric/Mental Health
DX: F31.9 Bipolar disorder, unspecified (principal); Z79.899 Other long term (current) drug therapy
CPT/HCPCS: 80178